=== PATIENT | male | born 1990 | race Caucasian/White ===

== ENCOUNTER 2021-10-16 00:34 | Observation (INO) | payer BC, OTHER ==
--- NOTE | 2021-10-16 01:10 | XR ---
EXAM: XR Right Knee, 3 Views CLINICAL HISTORY: ITS.REASON XR Reason: fall TECHNIQUE: Three views of the right knee. COMPARISON: No relevant prior studies available. FINDINGS: Bones/joints: Tiny joint effusion. No acute fracture. No dislocation. Soft tissues: Soft tissue spine over the patella. IMPRESSION: No evidence of acute fracture or dislocation. There is no subcutaneous air, or radiopaque foreign body. Tiny joint effusion. Soft tissue swelling over the patella.
[2021-10-16 04:33] LABS: Basophils # (A) 0.1 k/uL (0-0.2); Basophils % (A) 1 %; Eosinophils # (A) 0.2 k/uL (0-0.7); Eosinophils % (A) 2 %; HCT 40.8 % (39.0-53.0); HGB 13.6 gm/dL (13.0-17.5); Lymphocytes # (A) 1.5 k/uL (1.0-4.8); Lymphocytes % (A) 15 %; MCH 28.1 pg (25.0-35.0); MCHC 33.4 g/dL (31.0-37.0); Mean Platelet Volume 7.4; Monocytes # (A) 0.6 k/uL (0-1.0); Monocytes % (A) 6 %; Neutrophils # (A) 7.4 k/uL (1.3-7.7); Neutrophils % (A) 74 %; Platelet Count 260 k/uL (150-450); RBC 4.86 m/uL (4.30-5.90); RDW 13.8 % (11.5-15.5)
[2021-10-16 05:02] LABS: ALT 26 U/L (4-49); AST 36 U/L (17-59); African American GFR (CKD) >90 (>60 ml/min/1.73 sqM); Albumin 3.9 g/dL (3.5-5.0); Alkaline Phosphatase 70 U/L (38-126); Anion Gap 8 mmol/L; Blood Urea Nitrogen 15 mg/dL (9-20); C Reactive Protein 5.6 mg/dL (<1.0); Calcium 8.9 mg/dL (8.4-10.2); Carbon Dioxide 31 mmol/L (22-30); Chloride 95 mmol/L (98-107); Glucose 118 mg/dL (74-99); Non-African American GFR(CKD) >90 (>60 ml/min/1.73 sqM); Potassium 3.4 mmol/L (3.5-5.1); Sodium 134 mmol/L (137-145); Total Bilirubin 0.7 mg/dL (0.2-1.3)
[2021-10-16] MEDS ORDERED: ACETAMINOPHEN TAB 325 MG TAB PO PRN (06:19)
[2021-10-16] MEDS ORDERED: NALOXONE 0.4 MG/ML 1 ML VIAL IV PRN (06:19)
[2021-10-16] MEDS ORDERED: MORPHINE SULFATE 4 MG/ML SYRINGE IV PRN (06:19)
--- NOTE | 2021-10-16 06:25 | ED ---
General Adult HPI - General Chief complaint: Skin/Abscess/Foreign Body Stated complaint: RT knee injury Time Seen by Provider: 10/16/21 03:22 Source: patient Mode of arrival: ambulatory Limitations: no limitations - History of Present Illness Initial comments: This patient is a 30-year-old man who complains of having right knee pain. When I interview the patient, he is not able to give good history. Patient does appear to be very somnolent but arousable. Possible delirium. He did state that he hit his knee but is not able to elaborate. -: unknown Location: right, lower extremity Radiation: non-radiation Quality: aching Consistency: constant Improves with: none Worsens with: movement Treatments Prior to Arrival: none - Related Data Home Medications Medication Instructions Recorded Confirmed No Known Home Medications 10/16/21 10/16/21 Allergies Allergy/AdvReac Type Severity Reaction Status Date / Time No Known Allergies Allergy Verified 10/16/21 09:39 Review of Systems ROS Statement: Those systems with pertinent positive or pertinent negative responses have been documented in the HPI. ROS Other: All systems not noted in ROS Statement are negative. Limitations: ROS unobtainable due to patients medical condition Past Medical History Past Medical History: Asthma History of Any Multi-Drug Resistant Organisms: None Reported Past Surgical History: Cholecystectomy Past Psychological History: No Psychological Hx Reported Smoking Status: Current every day smoker Past Alcohol Use History: Occasional Past Drug Use History: None Reported - Past Family History Mother Family Medical History: Unable to Obtain (patient unsure) General Exam Limitations: no limitations General appearance: other (Somnolent but arousable) Head exam: Present: atraumatic, normocephalic Eye exam: Present: normal appearance. Absent: scleral icterus, conjunctival injection Neck exam: Present: normal inspection, full ROM. Absent: meningismus Respiratory exam: Present: normal lung sounds bilaterally. Absent: respiratory distress, wheezes, rales, rhonchi, stridor Cardiovascular Exam: Present: normal rhythm, tachycardia, normal heart sounds. Absent: systolic murmur, diastolic murmur, rubs, gallop GI/Abdominal exam: Present: soft. Absent: distended, tenderness, guarding, rebound, mass Right Hip exam: Present: full ROM. Absent: tenderness, swelling Upper Leg exam: Present: normal inspection. Absent: tenderness, swelling Knee exam: Present: tenderness, swelling, abrasion, erythema, effusion. Absent: full ROM, laceration, ecchymosis, deformity, crepitus, dislocation Lower Leg exam: Present: normal inspection, full ROM. Absent: tenderness, swelling Ankle exam: Present: normal inspection, full ROM. Absent: tenderness, swelling Foot/Toe exam: Present: normal inspection, full ROM. Absent: tenderness, swelling Neurovascular tendon exam: Present: no vascular compromise Neurological exam: Present: alert. Absent: motor sensory deficit Skin exam: Present: warm, dry, erythema. Absent: rash Course Vital Signs 10/16/21 10/16/21 10/16/21 00:37 06:00 07:38 Temperature 98.0 F 98.0 F Pulse Rate 109 H 87 86 Respiratory 20 16 16 Rate Blood Pressure 121/89 118/72 O2 Sat by Pulse 98 98 Oximetry Medical Decision Making - Medical Decision Making Patient is 30-year-old man here for right knee pain and swelling. He described low mechanism of injury injury to right knee earlier. When I interview the patient, he he appears delirious, not able to fully describe the injury. He has marked tenderness. There is erythema and warmth. Concern for possible septic arthritis. We'll admit patient with orthopedics consult. - Lab Data Result diagrams: 10/16/21 04:20 10/16/21 04:20 Lab Results 10/16/21 10/16/21 Range/Units 04:20 04:20 WBC 10.0 (3.8-10.6) k/uL RBC 4.86 (4.30-5.90) m/uL Hgb 13.6 (13.0-17.5) gm/dL Hct 40.8 (39.0-53.0) % MCV 84.0 (80.0-100.0) fL MCH 28.1 (25.0-35.0) pg MCHC 33.4 (31.0-37.0) g/dL RDW 13.8 (11.5-15.5) % Plt Count 260 (150-450) k/uL MPV 7.4 Neutrophils % 74 % Lymphocytes % 15 % Monocytes % 6 % Eosinophils % 2 % Basophils % 1 % Neutrophils # 7.4 (1.3-7.7) k/uL Lymphocytes # 1.5 (1.0-4.8) k/uL Monocytes # 0.6 (0-1.0) k/uL Eosinophils # 0.2 (0-0.7) k/uL Basophils # 0.1 (0-0.2) k/uL Sodium 134 L (137-145) mmol/L Potassium 3.4 L (3.5-5.1) mmol/L Chloride 95 L (98-107) mmol/L Carbon Dioxide 31 H (22-30) mmol/L Anion Gap 8 mmol/L BUN 15 (9-20) mg/dL Creatinine 0.60 L (0.66-1.25) mg/dL Est GFR (CKD-EPI)AfAm >90 (>60 ml/min/1.73 sqM) Est GFR (CKD-EPI)NonAf >90 (>60 ml/min/1.73 sqM) Glucose 118 H (74-99) mg/dL Calcium 8.9 (8.4-10.2) mg/dL Total Bilirubin 0.7 (0.2-1.3) mg/dL AST 36 (17-59) U/L ALT 26 (4-49) U/L Alkaline Phosphatase 70 (38-126) U/L C-Reactive Protein 5.6 H (<1.0) mg/dL Total Protein 7.0 (6.3-8.2) g/dL Albumin 3.9 (3.5-5.0) g/dL Disposition Clinical Impression: Arthralgia of right knee Disposition: ADMITTED IP TO THIS HOSP Condition: Fair
[2021-10-16] MEDS: SODIUM CHLORIDE 0.9% 1,000 ML IV SCH ×3 (07:05→22:03)
[2021-10-16] MEDS ORDERED: MELATONIN 3 MG TABLET PO PRN (11:00)
[2021-10-16] MEDS ORDERED: ONDANSETRON 4 MG/2 ML VIAL IVP PRN (11:00)
[2021-10-16] MEDS ORDERED: NICOTINE GUM (POLACRILEX) 2 MG GUM BUCCAL PRN (11:00)
[2021-10-16] MEDS ORDERED: VANCOMYCIN IV PER PHARMACY 1 EACH MISC MISCELLANE PRN (11:02)
--- NOTE | 2021-10-16 11:15 | P.HPIM ---
History of Present Illness H&P Date: 10/16/21 Chief Complaint: knee pain Patient is a 30-year-old male with a history of asthma, prior drug use, and tobacco abuse who presents to the ER with complaints of a fall and right knee. In the ER he underwent an extensive evaluation. Initial laboratory analysis was rather unremarkable. Initial x-ray did show some prepatellar swelling. He was started on IV fluids. He was noted to be fairly lethargic in the emergency department. Patient seen and examined at bedside. He reports that 3 days ago he hit his knee on something in the shower. It then started becoming red and warm. He is unsure if the 2 pinpoint areas of skin breakthrough were there prior to the redness or after. It is limiting his ability to bear weight and to move his knee appropriately. He denies any associated fever or chills. He is not very forthcoming in his history and is extremely defensive. He does admit to a prior history of drug use but will not tell me what, how much, but his/drug uses. He is not okay with being tested for HIV or hepatitis at this time and states it has become in the past. He then becomes increasingly agitated about questioning. Pertinent positives and negatives as discussed in HPI, a complete review of systems was performed and all other systems are negative. Vital signs reviewed General: nontoxic, no distress, appears at stated age Derm: warm, dry, multiple tatoos -right knee with warmth and erythema that extends 1/2 down the lateral calf , 2 pinpoint areas that appear somewhat necrotic, decreased flexion at the knee. Head: atraumatic, normocephalic, symmetric Eyes: EOMI, no lid lag, anicteric sclera, pupils equal round reactive to light ENT: Nose and ears atraumatic, no thrush, no pharyngeal erythema Neck: No thyromegaly, no cervical lymphadenopathy, trachea midline, supple Mouth: no lip lesion, mucus membranes moist Cardiovascular: S1S2 reg, no murmur, positive posterior tibial pulse bilateral, no edema, capillary refill less than 2 seconds Lungs: clear to auscultation bilateral, no rhonchi, no rales, no wheeze, no ac cessory muscle use Abdominal: soft, nontender to palpation, no guarding, no appreciable organomegaly, normal bowel sounds Ext: no gross muscle atrophy, muscle strength muscle strength 5 out of 5 in all 4 extremities, no contractures Neuro: CN II-XII grossly intact, light touch intact all 4 extremities, Psych: Alert, oriented, appropriate affect Assessment/Plan: Cellulitis with likely underlying bursitis of the right knee - start vanco and unsyn - IVF fluids - await ortho recs - refused HIV screening Acute encephalopahty, improving - check UDS - ETOH negative - conitnue to monitor Hypokalemia - replace and check Nicotine dependency - cessation - nicotine replacement HX illicit drug use The patient is admitted with an anticipated less than 2 midnight stay for evaluation of right knee infection. Surrogate decision-maker: mother DVT prophylaxis: scds left leg Discussed with: Patient, nursing Anticipated discharge date: in 1-[address]: home A total of 65 minutes was spent on the care of this complex patient more than 50% of the time was spent in counseling and care coordination. Past Medical History Past Medical History: Asthma History of Any Multi-Drug Resistant Organisms: None Reported Past Surgical History: Cholecystectomy Past Psychological History: No Psychological Hx Reported Smoking Status: Current every day smoker Past Alcohol Use History: Occasional Additional Drug Use History / Comment(s): states used drugs in the past but refuses to elaborate - Past Family History Mother Family Medical History: Unable to Obtain (patient unsure) Medications and Allergies Home Medications Medication Instructions Recorded Confirmed Type No Known Home Medications 10/16/21 10/16/21 History Allergies Allergy/AdvReac Type Severity Reaction Status Date / Time No Known Allergies Allergy Verified 10/16/21 09:39 Physical Exam Osteopathic Statement: *. No significant issues noted on an osteopathic structural exam other than those noted in the History and Physical/Consult. Vitals: Vital Signs Temp Pulse Pulse Resp BP BP Pulse Ox 10/16/21 09:57 16 10/16/21 08:45 98.7 F 86 16 133/72 98 10/16/21 07:38 98.0 F 86 16 118/72 98 10/16/21 06:00 87 16 10/16/21 00:37 98.0 F 109 H 20 121/89 98 Intake and Output 10/15/21 10/16/21 10/16/21 22:59 06:59 14:59 Other: Voiding Method Toilet Weight 77.111 kg 77.111 kg Results CBC & Chem 7: 10/16/21 04:20 10/16/21 04:20 Labs: Abnormal Lab Results - Last 24 Hours (Table) 10/16/21 Range/Units 04:20 Sodium 134 L (137-145) mmol/L Potassium 3.4 L (3.5-5.1) mmol/L Chloride 95 L (98-107) mmol/L Carbon Dioxide 31 H (22-30) mmol/L Creatinine 0.60 L (0.66-1.25) mg/dL Glucose 118 H (74-99) mg/dL C-Reactive Protein 5.6 H (<1.0) mg/dL Thrombosis Risk Factor Assmnt - Choose All That Apply Any of the Below Risk Factors Present?: No Other Risk Factors: No Other congenital or acquired thrombophilia - If yes, enter type in comment: No Thrombosis Risk Factor Assessment Level: Very Low Risk
[2021-10-16] MEDS: AMPICILLIN-SULBACTAM 3 GM in SODIUM CHLORIDE 0.9% 100 ML IVPB SCH ×3 (11:29→23:19)
[2021-10-16] MEDS ORDERED: VANCOMYCIN 1,500 MG in SODIUM CHLORIDE 0.9% 250 ML IVPB ONE (11:30)
[2021-10-16] MEDS: KETOROLAC 15 MG/ML 1 ML VIAL IVP PRN ×2 (11:58→17:56)
[2021-10-16] MEDS ORDERED: POTASSIUM CHLORIDE ER 20 MEQ TAB.ER PO STA (13:05)
[2021-10-16 14:28] LABS: Amphetamine Screen,Urine Detected (NotDetected); Barbiturate Screen,Urine Not Detected (NotDetected); Benzodiazepines Screen,Urine Not Detected (NotDetected); Cocaine Screen,Urine Not Detected (NotDetected); Methadone Screen, Urine Not Detected (NotDetected); Opiate Screen,Urine Not Detected (NotDetected); Oxycodone Screen, Urine Not Detected (NotDetected); Phencyclidine Screen,Urine Not Detected (NotDetected); Tricyclic Antidepressant,Urine Not Detected (NotDetected); Urn Cannabinoid Scrn Not Detected (NotDetected)
--- NOTE | 2021-10-16 15:42 | P.CNOR ---
History of Present Illness - [facility] Consult date: 10/16/21 History of present illness: This patient is a 30-year-old male with a past medical history of drug use, cigarette smoking, and asthma that presented to [facility] emergency department yesterday with complaints of right knee pain. The patient was noted to be fairly lethargic in the emergency department and history was difficult to obtain. Patient was admitted to the care of internal medicine with a consult placed to orthopedic surgery for evaluation of the right knee, for concern for a right knee infection. Patient is examined bedside in the emergency department this morning. He states he believes he injured the right knee about 3 days ago when he slipped in the shower. He states he did not twist or fall to the ground. He states he hit the anterior knee very hard on the shower. He states over the past 3 days he has been experiencing increasing pain, swelling, erythema of the knee. He states he is having difficulty weightbearing due to the pain. He states he otherwise feels well and denies fevers, chills, nausea, vomiting, generalized malaise. Patient is afebrile, white blood cell count within normal range. Past Medical History Past Medical History: Asthma History of Any Multi-Drug Resistant Organisms: None Reported Past Surgical History: Cholecystectomy Past Psychological History: No Psychological Hx Reported Smoking Status: Current every day smoker Past Alcohol Use History: Occasional Additional Drug Use History / Comment(s): states used drugs in the past but refuses to elaborate - Past Family History Mother Family Medical History: Unable to Obtain (patient unsure) Medications and Allergies Home Medications Medication Instructions Recorded Confirmed Type No Known Home Medications 10/16/21 10/16/21 History Allergies Allergy/AdvReac Type Severity Reaction Status Date / Time No Known Allergies Allergy Verified 10/16/21 09:39 Physical Examination On examination, patient is sitting in bed in no apparent distress. He is alert and oriented 3. His head appears normocephalic nature medic. His breathing appears unlabored. A focused examination of the right knee is conducted. On inspection of the right knee, there are 2 small abrasions at the anterior knee. There is diffuse swelling and erythema of the the anterior knee. Erythema extends into the mid calf. There is significant pain with palpation of the anterior knee. No significant joint effusion noted. There is pain with attempt at passive range of motion of the right knee. No pain with passive range of motion of the right hip, ankle, foot. Motor and sensory function is intact of the right lower extremity. The right lower extremities warm and well perfused w ith brisk capillary refill distally. Results Right knee x-ray 10/16/21: No acute fractures. No acute bony abnormalities. - Labs Labs: Abnormal Lab Results - Last 24 Hours (Table) 10/16/21 10/16/21 Range/Units 04:20 13:59 Sodium 134 L (137-145) mmol/L Potassium 3.4 L (3.5-5.1) mmol/L Chloride 95 L (98-107) mmol/L Carbon Dioxide 31 H (22-30) mmol/L Creatinine 0.60 L (0.66-1.25) mg/dL Glucose 118 H (74-99) mg/dL C-Reactive Protein 5.6 H (<1.0) mg/dL Ur Amphetamines Screen Detected H (NotDetected) U Methamphetamines Scrn Detected H (NotDetected) H & H 10/16/21 Range/Units 04:20 Hgb 13.6 (13.0-17.5) gm/dL Hct 40.8 (39.0-53.0) % Result Diagrams: 10/16/21 04:20 10/16/21 04:20 Assessment and Plan Assessment: Right knee probable prepatellar septic bursitis with cellulitis Plan: - Clinical and imaging findings were discussed with the patient. The patient was discussed with Dr. Bernal. No immediate surgical intervention is recommended today. Recommend a trial of IV antibiotics with close observation. Patient may apply moist heat to the anterior knee. - Medical management per admitting team. - We will follow patient closely and make recommendations as needed.
[2021-10-16] MEDS: VANCOMYCIN 1,500 MG in SODIUM CHLORIDE 0.9% 250 ML IVPB SCH (17:57)
[2021-10-17] MEDS: VANCOMYCIN 1,500 MG in SODIUM CHLORIDE 0.9% 250 ML IVPB SCH ×2 (01:57→11:17)
[2021-10-17] MEDS: SODIUM CHLORIDE 0.9% 1,000 ML IV SCH (05:14)
[2021-10-17] MEDS: AMPICILLIN-SULBACTAM 3 GM in SODIUM CHLORIDE 0.9% 100 ML IVPB SCH (05:16)
[2021-10-17 07:23] VITALS: BP 99/60; PULSE 84; RESP 14; TEMP 98.4
[2021-10-17] MEDS ORDERED: NICOTINE 14MG/24HR PATCH TRANSDERM SCH (09:00)
[2021-10-17 13:41] LABS: N. gonorrhoeae,PCR Negative (Neg,Equiv); Neisseria Source Urine
--- NOTE | 2021-10-17 14:05 | P.PN ---
Subjective Progress Note Date: 10/17/21 This patient is a 31- year old male orthopedics is following a right knee septic prepatellar bursitis with cellulitis. Patient has been receiving IV antibodies and the discretion of internal medicine. Patient states his knee pain is improved significantly overnight. He is able to perform [id number] of the knee and ambulate without pain. He states he feels well today and denies fevers, chills. Objective - Vital Signs Vital signs: Vital Signs Temp 98.4 F 10/17/21 07:00 Pulse 84 10/17/21 07:00 Resp 14 10/17/21 09:10 BP 99/60 10/17/21 07:00 Pulse Ox 100 10/17/21 07:00 FiO2 Intake & Output 10/16/21 10/17/21 10/17/21 18:59 06:59 18:59 Intake Total 236 118 Balance 236 118 Weight 77.111 kg Intake: Oral 236 118 Other: Voiding Method Toilet Toilet # Voids 1 1 - Exam on examination, patient is sitting on the edge of the bed in no apparent distress. He is alert and oriented 3. On inspection of the right knee, there is improved erythema and warmth to the right anterior knee. 2 areas of healing abrasions at the anterior knee. This area is only mildly painful to palpation. There is no pain with passive range of motion of the right knee today. There is no significant right knee effusion. Motor and sensory function is intact of the right lower extremity. Right lower extremity is warm and well-perfused. - Labs CBC & Chem 7: 10/16/21 04:20 10/16/21 04:20 Labs: Abnormal Lab Results - Last 24 Hours (Table) 10/16/21 Range/Units 13:59 Ur Amphetamines Screen Detected H (NotDetected) U Methamphetamines Scrn Detected H (NotDetected) Microbiology - Last 24 Hours (Table) 10/16/21 04:35 Blood Culture Gram Stain - Preliminary Blood Blood Culture - Preliminary Coagulase Negative Staph 10/16/21 04:20 Blood Culture - Preliminary Blood No Growth after 24 hours 10/16/21 04:35 Blood Culture - Final Blood Assessment and Plan Assessment: Right knee probable prepatellar septic bursitis with cellulitis, improving on IV antibiotics Plan: - Patient is improving on IV antibiotics. No surgical intervention planned at this time. - Continue IV antibiotics per admitting team. Patient may apply moist heat to anterior knee. - Patient may ambulate as tolerated. - We will follow patient as he remains inpatient and make recommendations as needed.
--- NOTE | 2021-10-17 14:17 | P.DS ---
Providers Date of admission: 10/16/21 06:19 Expected date of discharge: 10/17/21 Attending physician: Álvaro Blancas MD Consults: 10/16/21 06:19 Consult Physician Routine Consulting Provider: Marty Bernal Consult Reason/Comments: possible knee infection Do you want consulting provider notified?: Yes Primary care physician: Stated None Hospital Course: Cellulitis with likely underlying bursitis of the right knee Acute encephalopahty, improving Hypokalemia Nicotine dependency HX illicit drug use Patient is a 30-year-old male with a history of asthma, prior drug use, and tobacco abuse who presents to the ER with complaints of a fall on the right knee. In the ER he underwent an extensive evaluation. Initial laboratory analysis was rather unremarkable. Initial x-ray did show some prepatellar swelling. He was started on IV fluids. He was noted to be fairly lethargic in the emergency department. Patient was started on vancomycin and Unasyn and improved quickly. On the day of discharge, was back to his normal baseline, able to ambulate with a walker. Seen by orthopedic surgery who did not plan any operative intervention considering patient's improvement clinically. Patient was transitioned to doxycycline and Augmentin to complete a ten-day course of antibiotics. Patient was counseled on the cessation of IV drug use. Notably, HIV was considered, but patient refused screening. Gen: awake, alert HEENT: normocephalic, atraumatic, good hearing acuity, moist mucous membranes Resp: good air exchange, breathing comfortably with no accessory muscle use CVS: good distal perfusion x 4, GI: soft, NTTP, ND : no SPT, no CVAT, calderon catheter not present MSK: no pitting edema, no clubbing, small area of erythema anterior to the right patella Neuro: non-focal, moving all extremities Psych: cooperative, euthymic mood Patient Condition at Discharge: Good Plan - Discharge Summary New Discharge Prescriptions: New Amoxic-Pot Clav 875-125Mg [Augmentin 875-125] 1 tab PO BID 9 Days #18 tab Acetaminophen Tab [Tylenol] 650 mg PO Q6HR PRN tab PRN Reason: Mild Pain Or Fever > 100.5 Doxycycline [Vibramycin] 100 mg PO BID 9 Days #18 capsule Discharge Medication List Acetaminophen Tab [Tylenol] 650 mg PO Q6HR PRN tab 10/17/21 [Rx] Amoxic-Pot Clav 875-125Mg [Augmentin 875-125] 1 tab PO BID 9 Days #18 tab 10/17/21 [Rx] Doxycycline [Vibramycin] 100 mg PO BID 9 Days #18 capsule 10/17/21 [Rx] Follow up Appointment(s)/Referral(s): None,Stated [Primary Care Provider] - 1-2 days [facility] [NON-STAFF] - 1-2 Days (New PCP Appointment to be set up.) Discharge/Stand Alone Forms: Who Do I Call?, Community Resources, Personal Corporate Development Associate Discharge Disposition: HOME SELF-CARE
[2021-10-17] MEDS ORDERED: VANCOMYCIN TROUGH DUE 1 EACH MISC MISCELLANE ONE (17:00)
== END 2021-10-17 11:19 | disposition home or self-care (01) ==
LOC: EC 00:34 → 6NMEDSUR 06:19
PROVIDERS: ADMIT Internal Medicine; ATTEND Internal Medicine
DX: L03.115 Cellulitis of right lower limb (principal); G93.40 Encephalopathy, unspecified; E87.6 Hypokalemia; J45.909 Unspecified asthma, uncomplicated; R40.0 Somnolence; R53.83 Other fatigue; F17.210 Nicotine dependence, cigarettes, uncomplicated; W18.2XXA Fall in (into) shower or empty bathtub, initial encounter; Y93.E1 Activity, personal bathing and showering; Z71.51 Drug abuse counseling and surveillance of drug abuser; Z71.9 Counseling, unspecified; Z90.49 Acquired absence of other specified parts of digestive tract
CPT/HCPCS: 96376; 96365; 96366 ×2; 96367; 96375; 99284; 36415; 80053; 85025; 86140; 87040; 87591; 80306; 73562; G0378 ×2; G0480; J3370 ×2; J0295 ×2; J1885; 80320